=== PATIENT | male | born 2000 | race Caucasian/White ===

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

== ENCOUNTER → 2019-04-29 | Outpatient (REF) ==
[~2019-04-29] MED LIST changes: +ARIP1TAB6 PO; -ARIP5TA PO; +SERO50TA PO; -SERT25TA PO; +SERT25TA85 PO; +TRAZ-252 PO; +TRAZ1TAB10 PO
== END ==
LOC: M LAB LCGH 09:24
PROVIDERS: ATTEND Surgery
DX: K92.1 Melena (principal); R93.3 Abnormal findings on diagnostic imaging of other parts of digestive tract